=== PATIENT | male | born 1995 | race Caucasian/White ===

== ENCOUNTER 2017-09-10 10:31 | Emergency (ER) | payer BC ==
[2017-09-10] MEDS ORDERED: CEPHALEXIN 500 MG CAPSULE PO STA (10:40)
--- NOTE | 2017-09-10 10:41 | Emergency Department Record ---
History of Present Illness - General Chief Complaint: Laceration(s) Stated Complaint: RIGHT MIDDLE FINGER LACERATION Time Seen by Provider: 09/10/17 10:36 Source: Patient Mode of Arrival: Ambulatory Limitations: No limitations - History of Present Illness Initial Commments: 21 yo male presents after accidentally lacerating his right middle finger. His brother was gutting a deer and sliced his right middle finger. It was cleaned. No changes in function or ROM. No numbness or tingling. No pain or limits to movement. -: Hour(s) (1) Extremity Location: Right: Hand (middle finger) Place: Home Context: Accidental, Sharp object use Associated Symptoms: None - [place] Coma Scale Eye Response: (4) Open spontaneously Motor Response: (6) Obeys commands Verbal Response: (5) Oriented [place] Total: 15 - Related Data Previous Rx's Medication Instructions Recorded Cephalexin [Keflex] 500 mg PO TID #21 cap 09/10/17 Allergies Allergy/AdvReac Type Severity Reaction Status Date / Time No Known Drug Allergies Allergy Verified 09/10/17 10:38 Review of Systems Constitutional: Denies: Chills, Fever, Weakness Eyes: Denies: Eye discharge ENT: Denies: Congestion, Throat pain Respiratory: Denies: Cough Cardiovascular: Denies: Chest pain, Syncope Endocrine: Denies: Fatigue Gastrointestinal: Denies: Abdominal pain, Nausea, Vomiting Genitourinary: Denies: Dysuria, Frequency, Hematuria Musculoskeletal: Denies: Arthralgia, Back pain, Joint swelling, Myalgia, Neck pain Skin: Reports: Other (laceration). Denies: Bruising, Change in color, Rash Psychiatric: Denies: Anxiety Hematological/Lymphatic: Denies: Blood Clots, Easy bleeding, Easy bruising, Swollen glands Physical Exam - General General Appearance: Alert, Oriented x3, Cooperative, No acute distress Limitations: No limitations - Head Head exam: Atraumatic, Normal inspection - Eye Eye exam: Normal appearance - ENT ENT exam: Normal exam Ear exam: Normal external inspection Nasal Exam: Normal inspection - Neck Neck exam: Normal inspection - Cardiovascular Peripheral Pulses: 2+: Radial (R) - Rectal Rectal exam: Deferred - exam: Deferred - Extremities Extremities exam: negative: Normal inspection Image of Hand: 1 - 1 cm superficial lacertaion, intact extension, intact flexion, no sensory deficit, clean - Neurological Neurological exam: Alert, Normal gait, Oriented X3, Reflexes normal - Psychiatric Psychiatric exam: Normal affect, Normal mood - Skin Skin exam: Other Type of lesion: Laceration Course - Reevaluation(s) Reevaluation #1: Procedure Soak in [facility] by RN Betadine prep Examined with bloodless field No functional signs of tendon injury or FB Clean wound no FB, no visible tendon or tendon injury Lidocaine 1% local Copious irrigation with NS Ethilon 4-0 Suture 3 sutures placed with good approximation We discussed follow up and reasons to return or be seen 09/10/17 10:39 The wound was dressed with antibiotic ointment and tube gauze prior to DC Disposition Disposition: Discharge Clinical Impression: Laceration Disposition: Home, Self-Care Condition: (1) Good Instructions: Laceration (ED) Additional Instructions: Return in 7 days for suture removal Return sooner if red, warm, pus drainage or any concerns. Prescriptions: Cephalexin [Keflex] 500 mg PO TID #21 cap Forms: Patient Portal Access Time of Disposition: 11:00 Quality - Quality Measures Quality Measures: N/A - Blood Pressure Screening Does Patient Have Any of the Following: No Blood Pressure Classification: Normal BP Reading Systolic Measurement: 116 Diastolic Measurement: 66 Screening for High Blood Pressure: < Normal BP, F/U Not Required > [G8783] Pre-Hypertensive Follow-up Interventions: Referral to alternative/primary care provider.
== END 2017-09-10 11:11 | disposition home or self-care (01) ==
LOC: ER 10:31
DX: S61.212A Laceration without foreign body of right middle finger without damage to nail, initial encounter (principal); W26.0XXA Contact with knife, initial encounter; Y92.009 Unspecified place in unspecified non-institutional (private) residence as the place of occurrence of the external cause
CPT/HCPCS: 12001; 99283